=== PATIENT | female | born 1995 ===

== ENCOUNTER 2023-03-28 21:03 | Inpatient (IN) | payer OTHER ==
[~2023-03-28] VITALS: Ht 154.9 cm; Wt 73.6 kg
[2023-03-28] MEDS ORDERED: LACTATED RINGER'S 1000 ML IV STA (22:35)
[2023-03-28] MEDS ORDERED: METHYLERGONOVINE MALEATE 0.2MG/ML 1ML VIAL IM PRN (22:35)
[2023-03-28] MEDS ORDERED: OXYTOCIN INJ 10UNITS/ML 1ML VIAL IM PRN (22:35)
[2023-03-28] MEDS ORDERED: OXYTOCIN DRIP 30 UNITS in IV 1 EA IV PRN ×6 (22:35)
[2023-03-28] MEDS ORDERED: OXYTOCIN DRIP 30 UNITS in IV 1 EA IV SCH (22:35)
[2023-03-28] MEDS ORDERED: TRANEXAMIC ACID INJection 1,000 MG in NS 100 ML IV PRN (22:35)
[2023-03-28] MEDS ORDERED: OXYTOCIN INJ 10UNITS/ML 1ML VIAL IV PRN (22:35)
[2023-03-28] MEDS ORDERED: LR 1,000 ML IV SCH (22:35)
[2023-03-28] MEDS ORDERED: CARBOPROST TROMETHAMINE 250 MCG/ML AMP IM PRN (22:35)
[2023-03-28] MEDS ORDERED: HOME MED LIST COMPLETE! XX SCH (22:35)
[2023-03-28 22:42] LABS: HEMOGLOBIN 11.9 g/dl (12.0-15.5); MEAN CORPUSCULAR HEMOGLOBIN 26.6 pg (27.0-33.0); MEAN CORPUSCULAR HGB CONC 32.2 g/dl (32.0-36.5); MEAN CORPUSCULAR VOLUME 82.6 fl (80.0-96.0); PLATELET COUNT, AUTOMATED 192 10^3/uL (150-450); RED BLOOD COUNT 4.48 10^6/uL (4.00-5.40); WHITE BLOOD COUNT 7.5 10^3/uL (4.0-10.0)
[2023-03-28 23:09] LABS: TOTAL PROTEIN,RANDOM URINE 63.5 MG/DL (0.0-14.0)
[2023-03-28 23:14] LABS: CREATININE,RANDOM URINE 67.8 MG/DL
[2023-03-28 23:15] LABS: ALBUMIN 2.9 G/DL (3.2-5.2); ALKALINE PHOSPHATASE 261 U/L (46-116); ALT/SGPT 15 U/L (7.0-40); AST/SGOT 13 U/L (<34); BILIRUBIN,TOTAL 0.3 MG/DL (0.3-1.2); BLOOD UREA NITROGEN 9 MG/DL (9-23); CALCIUM LEVEL 8.9 MG/DL (8.5-10.1); CARBON DIOXIDE LEVEL 20 MMOL/L (20-31); CHLORIDE LEVEL 108 MMOL/L (98-107); CREATININE FOR GFR 0.51 MG/DL (0.55-1.30); GLOMERULAR FILTRATION RATE > 60.0 (>60); GLUCOSE, FASTING 85 MG/DL (60-100); POTASSIUM SERUM 3.8 MMOL/L (3.5-5.1); SODIUM LEVEL 137 MMOL/L (136-145); TOTAL PROTEIN 6.2 G/DL (5.7-8.2)
[2023-03-29] VITALS (19 sets, daily range): BP systolic 129–185; BP diastolic 63–96
[2023-03-29] MEDS ORDERED: PROMETHAZINE 25MG/ML 1ML VIAL IV ONE (00:15)
[2023-03-29] MEDS ORDERED: BUTORPHANOL 2 MG/ML 1ML VIAL IV ONE (00:15)
[2023-03-29] MEDS: LR 1,000 ML IV SCH ×3 (01:28→20:07)
[2023-03-29] MEDS ORDERED: ONDANSETRON 4MG 2ML VIAL IV PRN (04:20)
[2023-03-29] MEDS ORDERED: diphenhydrAMINE 50MG/ML VIAL IV PRN (04:20)
[2023-03-29] MEDS ORDERED: LR 500 ML IV PRN (04:20)
[2023-03-29] MEDS ORDERED: ePHEDrine SULFATE 25 MG/5 ML(5MG/ML) SYRINGE IVP PRN (04:20)
[2023-03-29] MEDS ORDERED: EPIDURAL/PCA KEYS XX PRN (04:20)
[2023-03-29] MEDS ORDERED: NALOXONE INJ 0.4MG/1ML VIAL IV PRN (04:20)
[2023-03-29] MEDS: FENTANYL/ROPIVACAINE/NACL BAG 100 ML EPIDURAL SCH ×3 (04:48→21:17)
[2023-03-29] MEDS ORDERED: REFLB XX ONE ×2 (12:41→21:04)
[2023-03-29] MEDS: LABETALOL 200 MG TAB PO SCH (19:10)
[2023-03-30] VITALS (44 sets, daily range): BP systolic 114–186; BP diastolic 57–97; O2SAT 95–98
[2023-03-30] MEDS: LABETALOL 200 MG TAB PO SCH ×3 (03:03→18:55)
[2023-03-30] MEDS: LR 1,000 ML IV SCH (03:22)
[2023-03-30] MEDS ORDERED: REFLB XX ONE (03:42)
[2023-03-30] MEDS: FENTANYL/ROPIVACAINE/NACL BAG 100 ML EPIDURAL SCH (04:12)
[2023-03-30] MEDS ORDERED: fentaNYL 100 MCG/2 ML INJECTION As Ordered ONE (08:26)
[2023-03-30] MEDS: FERROUS SULFATE 325MG TAB PO SCH (09:00)
[2023-03-30] MEDS: PRENATAL VITAMINS CHEWABLE TABLET PO SCH (09:00)
[2023-03-30] MEDS ORDERED: OXYTOCIN 30UNITS IN 0.9% NaCl 500ML IV BAG As Ordered ONE ×2 (10:24→11:49)
[2023-03-30] MEDS ORDERED: MORPHINE PRES-FREE INJ 10 MG/10 ML VIAL As Ordered ONE (10:25)
[2023-03-30] MEDS ORDERED: BICITRA 30ML SOLN UDC PO ONE (10:30)
[2023-03-30] MEDS ORDERED: AZITHROMYCIN INJ 500 MG, VIAL MATE ADAPTER 1 EACH in NS 250 ML IV ONE (10:30)
[2023-03-30] MEDS ORDERED: ceFAZolin SOD 2 GM in IV 1 EA IV ONE (10:30)
[2023-03-30] MEDS ORDERED: COLA100C5 PO (10:58)
[2023-03-30] MEDS ORDERED: ACET-907 PO (10:58)
[2023-03-30] MEDS ORDERED: UNIS25TA3 PO (10:58)
[2023-03-30] MEDS ORDERED: PRENTAB9 PO (10:58)
[2023-03-30] MEDS ORDERED: TUMS500C PO (10:58)
[2023-03-30] MEDS ORDERED: KETOROLAC 60MG 2ML VIAL As Ordered ONE (11:00)
[2023-03-30] MEDS ORDERED: ACETAMINOPHEN 1000MG 100ML IV BAG As Ordered ONE (11:00)
[2023-03-30] MEDS ORDERED: ONDANSETRON 4MG 2ML VIAL As Ordered ONE (11:00)
[2023-03-30] MEDS ORDERED: OXYTOCIN INJ 10UNITS/ML 1ML VIAL As Ordered ONE (11:07)
[2023-03-30 11:23] LABS: CORD GAS ABE A -7.2; CORD GAS HCO3 A 20.7 MMOL/L; CORD GAS O2 SAT A 41.9 %; CORD GAS PH A 7.227 UNITS; CORD GAS PO2 A 22.6 mmHg; CORD GAS SBC A 17.4 MMOL/L; CORD GAS TCO2 A 22.3 MMOL/L
[2023-03-30 11:25] LABS: CORD GAS ABE V -4.8; CORD GAS HCO3 V 20.9 MMOL/L; CORD GAS O2 SAT V 48.1 %; CORD GAS PCO2 V 40.7 mmHg; CORD GAS PH V 7.328 UNITS; CORD GAS PO2 V 21.8 mmHg; CORD GAS SBC V 19.4 MMOL/L; CORD GAS TCO2 V 22.1 MMOL/L
[2023-03-30] MEDS ORDERED: NALBUPHINE HCL 1MG/0.1ML (100MG/10ML) MDV IV PRN ×2 (12:20)
[2023-03-30] MEDS ORDERED: oxyCODONE 5MG TAB PO PRN (12:20)
[2023-03-30] MEDS ORDERED: ANUSOL HC CREAM 30GM TOP PRN (12:20)
[2023-03-30] MEDS: SLF 3 ML SYR IV SCH ×2 (12:20→23:51)
[2023-03-30] MEDS ORDERED: **NOTE PATIENT COMMENT** MISC XX SCH (12:20)
[2023-03-30] MEDS ORDERED: MORPHINE 2 MG/ML 1ML VIAL IV PRN (12:20)
[2023-03-30] MEDS ORDERED: PROMETHAZINE 25MG/ML 1ML VIAL IV PRN (12:20)
[2023-03-30] MEDS ORDERED: diphenhydrAMINE 50MG/ML VIAL IV PRN (12:20)
[2023-03-30] MEDS ORDERED: fentaNYL 100 MCG/2 ML INJECTION IV PRN (12:20)
[2023-03-30] MEDS ORDERED: SIMETHICONE 80MG CHEW TAB PO PRN (12:20)
[2023-03-30] MEDS ORDERED: METOCLOPRAMIDE INJ 10MG/2ML VIAL IV PRN (12:20)
[2023-03-30] MEDS ORDERED: ONDANSETRON 4MG 2ML VIAL IV PRN ×3 (12:20)
[2023-03-30] MEDS ORDERED: PERCOCET 5MG/325MG TAB PO PRN (12:20)
[2023-03-30] MEDS ORDERED: NALOXONE INJ 0.4MG/1ML VIAL IV PRN ×2 (12:20)
[2023-03-30] MEDS ORDERED: LR 1,000 ML IV SCH ×2 (12:20)
[2023-03-30] MEDS ORDERED: OXYTOCIN DRIP 30 UNITS in IV 1 EA IV ONE (12:25)
[2023-03-30] MEDS ORDERED: MIRALAX *UNIT DOSE* 17GM PACKET PO PRN (12:25)
[2023-03-30] MEDS ORDERED: oxyCODONE 5MG TAB As Ordered ONE (12:33)
[2023-03-30] MEDS: ACETAMINOPHEN TAB 650MG DOSE (2X325MG) PO PRN (16:31)
[2023-03-30] MEDS: KETOROLAC 30 MG/ML 1ML VIAL IV SCH ×2 (18:28→23:51)
[2023-03-30] MEDS: DOCUSATE SODIUM 100MG CAPSULE PO SCH (20:23)
[2023-03-31] VITALS (7 sets, daily range): BP systolic 106–128; BP diastolic 59–74; TEMP 98.5; O2SAT 98–100
[2023-03-31] MEDS: LABETALOL 200 MG TAB PO SCH (02:55)
[2023-03-31] MEDS: KETOROLAC 30 MG/ML 1ML VIAL IV SCH (05:37)
[2023-03-31] MEDS: SLF 3 ML SYR IV SCH (05:37)
[2023-03-31 06:55] LABS: HEMATOCRIT 26.2 % (36.0-47.0); HEMOGLOBIN 8.4 g/dl (12.0-15.5); MEAN CORPUSCULAR HEMOGLOBIN 26.6 pg (27.0-33.0); MEAN CORPUSCULAR HGB CONC 32.1 g/dl (32.0-36.5); MEAN CORPUSCULAR VOLUME 82.9 fl (80.0-96.0); PLATELET COUNT, AUTOMATED 129 10^3/uL (150-450); RED BLOOD COUNT 3.16 10^6/uL (4.00-5.40); WHITE BLOOD COUNT 13.1 10^3/uL (4.0-10.0)
[2023-03-31] MEDS: DOCUSATE SODIUM 100MG CAPSULE PO SCH ×2 (09:23→21:35)
[2023-03-31] MEDS: FERROUS SULFATE 325MG TAB PO SCH (09:23)
[2023-03-31] MEDS: PRENATAL VITAMINS CHEWABLE TABLET PO SCH (09:23)
[2023-03-31] MEDS: IBUPROFEN 800 MG TAB PO SCH ×2 (14:29→21:35)
[2023-03-31] MEDS: oxyCODONE 5MG TAB PO PRN (18:05)
[2023-04-01] MEDS: oxyCODONE 5MG TAB PO PRN (00:59)
[2023-04-01 02:00] VITALS: BP 111/58; TEMP 98.3
[2023-04-01] MEDS: IBUPROFEN 800 MG TAB PO SCH (05:26)
[2023-04-01] MEDS ORDERED: MEASLES,MUMPS,RUBELLA VACCINE INJ (MMR-II) SC.IMMUN ONE (09:00)
[2023-04-01] MEDS: FERROUS SULFATE 325MG TAB PO SCH (09:05)
[2023-04-01] MEDS: PRENATAL VITAMINS CHEWABLE TABLET PO SCH (09:05)
[2023-04-01] MEDS: ACETAMINOPHEN TAB 650MG DOSE (2X325MG) PO PRN (09:05)
[2023-04-01] MEDS: DOCUSATE SODIUM 100MG CAPSULE PO SCH (09:05)
[2023-04-01 10:00] VITALS: BP 146/79; O2SAT 99
== END 2023-04-01 13:20 | disposition home or self-care (01) | DRG 773 ==
LOC: M LDO 21:03 → M LDI 21:48 → M OBS 03-30 13:42
PROVIDERS: ADMIT Obstetrics & Gynecology; ATTEND Obstetrics & Gynecology
PROC: 10D00Z1 Extraction of Products of Conception, Low, Open Approach (ICD-10-PCS; principal; 2023-03-30 10:40)
DX: O14.94 Unspecified pre-eclampsia, complicating childbirth (principal); O62.0 Primary inadequate contractions; Z37.0 Single live birth; Z3A.40 40 weeks gestation of pregnancy; O77.0 Labor and delivery complicated by meconium in amniotic fluid; O69.82X0 Labor and delivery complicated by other cord entanglement, without compression, not applicable or unspecified; O32.6XX0 Maternal care for compound presentation, not applicable or unspecified